=== PATIENT | female | born 1990 | race Caucasian/White ===

== ENCOUNTER → 2016-12-31 | Outpatient (REF) | payer OTHER, MEDICAID ==
[~2016-12-31] MED LIST: ACET50TA PO; IBUP-1114 PO; PRENTAB40 PO
== END ==
LOC: M LAB REF 11:24
PROVIDERS: ATTEND Advanced Practice Midwife
DX: Z12.4 Encounter for screening for malignant neoplasm of cervix (principal); R87.610 Atypical squamous cells of undetermined significance on cytologic smear of cervix (ASC-US)

== ENCOUNTER → 2018-01-27 | Outpatient (REF) | payer OTHER | LOC: M SMT 13:32 | DX: Z12.4 Encounter for screening for malignant neoplasm of cervix (principal) ==

== ENCOUNTER → 2018-07-29 | Outpatient (REF) | payer OTHER, SELFPAY ==
[~2018-07-29] MED LIST changes: -ACET50TA PO; +MAPA500T2 PO
[2018-07-29 17:12] LABS: FREE T4 0.46 NG/DL (0.76-1.46); THYROID STIMULATING HORMONE 55.1 uIU/ML (0.358-3.740)
== END ==
LOC: M SFHCLERA 11:18
PROVIDERS: ATTEND Nurse Practitioner Family
DX: Z83.49 Family history of other endocrine, nutritional and metabolic diseases (principal)

== ENCOUNTER → 2018-10-15 | Outpatient (REF) | payer OTHER ==
[2018-10-15 18:17] LABS: FREE T4 1.38 NG/DL (0.76-1.46); THYROID STIMULATING HORMONE 0.153 uIU/ML (0.358-3.740)
== END ==
LOC: M SFHCLERA 10:51
PROVIDERS: ATTEND Nurse Practitioner Family
DX: E03.9 Hypothyroidism, unspecified (principal)

== ENCOUNTER → 2019-01-19 | Outpatient (REF) | payer OTHER ==
[~2019-01-19] MED LIST changes: +AIRB1TAB PO; +AMOX875T2; +AUGM875T28 PO; +HYDR1CAP25; +HYDR1CAP25 PO; +IBUP-1720 PO; +LEVO88TA3; +MEDR150I10 IM; +SYNT88TA2 PO; +VENL37.598; +VENL37.598 PO; +VENTAER INH; +VICKOIN5 TOP
[2019-01-19 15:09] LABS: FREE T4 1.02 NG/DL (0.76-1.46); THYROID STIMULATING HORMONE 1.17 uIU/ML (0.358-3.740)
== END ==
LOC: M SFHCLERA 12:25
PROVIDERS: ATTEND Nurse Practitioner Family
DX: E03.9 Hypothyroidism, unspecified (principal)

== ENCOUNTER → 2019-01-23 | Outpatient (REF) | payer OTHER ==
[~2019-01-23] MED LIST changes: -AIRB1TAB PO; -AMOX875T2; -AUGM875T28 PO; -HYDR1CAP25; -HYDR1CAP25 PO; -IBUP-1720 PO; -LEVO88TA3; -MEDR150I10 IM; -SYNT88TA2 PO; -VENL37.598; -VENL37.598 PO; -VENTAER INH; -VICKOIN5 TOP
== END ==
LOC: M SFHCLERA 12:13
PROVIDERS: ATTEND Nurse Practitioner Family
DX: J02.9 Acute pharyngitis, unspecified (principal)

== ENCOUNTER 2019-02-03 18:39 | Inpatient (IN) | payer OTHER ==
[~2019-02-03] VITALS: Ht 154.9 cm; Wt 79.4 kg
[2019-02-03] MEDS ORDERED: AMOX875T2 (18:45)
[2019-02-03] MEDS ORDERED: HYDR1CAP25 (18:46)
[2019-02-03] MEDS ORDERED: LEVO88TA3 (18:46)
[2019-02-03] MEDS ORDERED: VENL37.598 (18:46)
[2019-02-03] MEDS ORDERED: ACETAMINOPHEN TAB 650MG DOSE (2X325MG) PO ONE ×2 (19:00→21:30)
[2019-02-03 19:36] LABS: BASO # 0.1 10^3/uL (0.0-0.2); BASO % 0.4 % (0.0-1.0); EOS # 0.3 10^3/uL (0.0-0.5); EOS % 1.9 % (0.0-3.0); HEMATOCRIT 40.6 % (36.0-47.0); HEMOGLOBIN 13.8 g/dl (12.0-15.5); LYMPH # 2.8 10^3/uL (1.5-5.0); LYMPH % 18.6 % (24.0-44.0); MEAN CORPUSCULAR HEMOGLOBIN 29.5 pg (27.0-33.0); MEAN CORPUSCULAR VOLUME 86.8 fl (80.0-96.0); MONO # 0.6 10^3/uL (0.0-0.8); MONO % 4.1 % (0.0-5.0); NEUTROPHILS % 74.1 % (36.0-66.0); PLATELET COUNT, AUTOMATED 384 10^3/uL (150-450); RED BLOOD COUNT 4.68 10^6/uL (4.00-5.40); WHITE BLOOD COUNT 14.9 10^3/uL (4.0-10.0)
[2019-02-03 20:11] LABS: ALBUMIN 3.3 GM/DL (3.2-5.2); ALT/SGPT 25 U/L (12-78); BILIRUBIN,TOTAL 0.7 MG/DL (0.2-1.0); BLOOD UREA NITROGEN 14 MG/DL (7-18); CALCIUM LEVEL 9.1 MG/DL (8.5-10.1); CARBON DIOXIDE LEVEL 26 MEQ/L (21-32); CHLORIDE LEVEL 103 MEQ/L (98-107); CREATININE FOR GFR 0.76 MG/DL (0.55-1.30); GLOMERULAR FILTRATION RATE > 60.0 (>60); GLUCOSE, FASTING 115 MG/DL (70-100); SODIUM LEVEL 138 MEQ/L (136-145); TOTAL PROTEIN 7.2 GM/DL (6.4-8.2)
[2019-02-03] MEDS ORDERED: BENZONATATE 100 MG CAP PO ONE (21:15)
[2019-02-03] MEDS ORDERED: DILUENT IV ONE (21:15)
[2019-02-03] MEDS ORDERED: NS IV ONE (21:15)
[2019-02-03 21:28] LABS: INFLUENZA A AMPLIFICATION NEGATIVE (NEGATIVE); INFLUENZA B AMPLIFICATION NEGATIVE (NEGATIVE)
[2019-02-03] MEDS ORDERED: ISOVUE-370 76% 100ML VIAL (Q9967) As Ordered ONE (21:34)
--- NOTE | 2019-02-03 22:48 | REPVR ---
PROCEDURE INFORMATION: Exam: CT Angiography Chest With Contrast Exam date and time: 02/03/2019 9:15 PM Clinical history: 28 years old, female; Chest pain; Type not specified; Additional info: Pleuritic cp, hemoptysis, elevated lactic TECHNIQUE: Imaging protocol: Computed tomographic angiography of the chest with intravenous contrast. 3D rendering: MIP reconstructed images were created and reviewed. Radiation optimization: All CT scans at this facility use at least one of these dose optimization techniques: automated exposure control; mA and/or kV adjustment per patient size (includes targeted exams where dose is matched to clinical indication); or iterative reconstruction. Contrast material: ISO; Contrast volume: 75 ml; Contrast route: HAND; COMPARISON: CR Chest, 2 view PA, Lat 08/03/2012 11:59 PM FINDINGS: Pulmonary arteries: There is decreased enhancement of peripheral pulmonary arterial branches within the right middle lobe and lingula, which can be a limitation of the study although pulmonary embolism is difficult to exclude. The main pulmonary trunk, right/left main pulmonary arteries, and the proximal lobar branches demonstrate no definite intraluminal filling defect to suggest pulmonary embolism. Aorta: Artifact limits evaluation of the ascending aorta and aortic arch. No aneurysmal dilatation or dissection of the descending thoracic aorta. Lungs: Diffuse reticulonodular opacities are identified within the lungs bilaterally. This is likely infectious or inflammatory in etiology. Scattered nodules are identified within the left lower lobe of the lung. On series 401, image 76, there is a 1.4 cm nodule. Malignant nodules cannot be excluded. A few small calcified nodules are identified within the left lower lobe of the lung. Pleural space: No pneumothorax. No pleural effusion. Heart: No cardiomegaly. No pericardial effusion. Lymph nodes: Nonspecific bilateral axillary lymph nodes are identified with prominent fatty carl. Several mildly enlarged mediastinal lymph nodes are identified. In the left periaortic region, there is a 1.2 x 0.6 cm lymph node. A mildly enlarged right hilar lymph node is visualized measuring 1.3 x 1.0 cm. Small left hilar lymph nodes are identified. Bones/joints: Mild increased kyphosis of the thoracic spine. Mild spondylosis visualized within the thoracic spine. Soft tissues: Unremarkable. IMPRESSION: 1. There is decreased enhancement of peripheral pulmonary arterial branches within the right middle lobe and lingula, which can be a limitation of the study although pulmonary embolism is difficult to exclude. 2. Diffuse reticulonodular opacities are identified within the lungs bilaterally. This is likely infectious or inflammatory in etiology. A follow-up chest CT is recommended. 3. Scattered nodules are identified within the left lower lobe of the lung. Malignant nodules cannot be excluded. If patient does not have known cancer, follow up should be based on clinical information because of the low risk of cancer in this age group. (Patrick et al., Fleischner Society, 2017) 4. Several mildly enlarged mediastinal lymph nodes are identified.. A mildly enlarged right hilar lymph node is visualized measuring 1.3 x 1.0 cm. Small left hilar lymph nodes are identified. 5. Additional findings described above. Electronically signed by: Stalin Parra On 02/03/2019 22:47:34 PM
[2019-02-03] MEDS ORDERED: ALBUTEROL SULFATE 2.5 MG/0.5 ML INH NEB SOLN NEB ONE (23:15)
[2019-02-04] MEDS ORDERED: LevoFLOXacin IV 750 MG in APPROPRIATE DILUENT 1 EA IV ONE (00:15)
[2019-02-04] MEDS ORDERED: AUGM875T28 PO (01:00)
[2019-02-04] MEDS ORDERED: IBUP-1720 PO (01:00)
[2019-02-04] MEDS ORDERED: VENTAER INH (01:00)
[2019-02-04] MEDS ORDERED: AIRB1TAB PO (01:00)
[2019-02-04] MEDS ORDERED: MEDR150I10 IM (01:00)
[2019-02-04] MEDS ORDERED: VICKOIN5 TOP (01:00)
[2019-02-04] MEDS ORDERED: SYNT88TA2 PO (01:00)
[2019-02-04] MEDS ORDERED: VENL37.598 PO (01:00)
[2019-02-04] MEDS ORDERED: HYDR1CAP25 PO (01:00)
--- NOTE | 2019-02-04 02:48 | HPEPDOC ---
[facility] Medical History & Physical Date of Admission Feb 04, 2019 Date of Service: Feb 04, 2019 Primary Care Physician: JOSEFA TOWNSEND Attending Physician: SOLEDAD KEN MD History and Physical CHIEF COMPLAINT: Two-week history of sore throat, cough, fevers, chills and myalgias HISTORY OF PRESENT ILLNESS: Patient is a 28-year-old female, past medical history significant for Hashimotos and depression, who presents to the emergency department complaining of a two-week history of sore throat, chills, congestion, myalgias and productive cough with green sputum. Patient was seen by her primary care provider, Marcos DHALIWAL, on 01/23/19. Rapid strep was performed and negative. Patients symptoms failed to improve and on 01/26/19 patient presented to urgent care. She was diagnosed with bronchitis and started on a course of oral Augmentin. Patient states that she concluded her antibiotics last week with only mild overall improvement in her symptoms. She states that on Saturday02/01/19, her fever, now measuring 101F, returned. She reports self-treatment with [id number]-nus-xodjsli Aleve. Her cough continued to persist with green-colored sputum. Patient presented to the emergency department this evening after her symptoms failed to improve. In the emergency department, patient was found to have a temperature of 101.5F on arrival, pulse of 118 bpm, respiratory rate of 20, blood pressure 130/86 mmHg and an oxygen saturation 97% on room air. Patient was treated with albuterol nebulizers, Tylenol, Tessalon Perles and normal saline. Patients fever was responsive to NSAID therapy. Laboratory workup was significant for a leukocytosis of 14.9 with neutrophilia. Chemistries demonstrated a lactic acid of 2.8 and a TSH of 5.6. B-hCG negative. Flu swab was negative for both influenza A and B. CTA was performed, out of concern for PE, and demonstrated decreased enhancement of right middle lobe and lingula, unable to rule out PE. Reticulonodular opacities bilaterally, suspect infectious or inflammatory etiology. Scattered nodules also identified in the left lower lobe of lung in the setting of bilateral mediastinal lymphadenopathy. A single dose of IV levofloxacin was administered. Hospitalist team was contacted for admission for IV antibiotic therapy and continue workup and management. PAST MEDICAL HISTORY: ADHD Depression Hashimotos thyroiditis. PAST SURGICAL HISTORY: Patient denies any previous surgeries SOCIAL HISTORY: Marital Status: Engaged Resides: At home with chloe and 3-year-old son Occupation: Patient works at [employer] Tobacco: Patient denies any history of nicotine use Alcohol: Patient reports very rare alcohol use and no recent intoxication. Illicit drug use: Patient admits to utilizing edible marijuana once in the last month. She denies any other illicit or IV drug use. FAMILY HISTORY: Father: Alive, ADHD Mother: Alive, Graves' disease Siblings: Alive, 4 sisters, healthy Children: One 3-year-old son, healthy ALLERGIES: Patient denies any allergies REVIEW OF SYSTEMS: CONSTITUTIONAL: Patient reports intermittent fevers over the last 2 weeks. Worse in the last 3 days with a high of 101. Amenable to [id number] Aleve. Patient reports coinciding chills and night sweats. She reports increased weight gain over the last couple weeks despite decreased appetite. Patient also subscribes to increasing fatigue. HEENT: Reports intermittent headaches, generalized. She denies any changes in vision. She reports intermittent ear pain in both sides though never at the same time. Reporting nasal congestion and maxillary sinus pressure. She denies any difficulty swallowing. CARDIOVASCULAR: Patient reports generalized chest and rib pain, worse when coughing. She denies any palpitations or inappropriate tachycardia RESPIRATORY: Reports 2 week history of productive cough with yellow sputum, some light pink flecks. Patient reports an audible wheeze when lying flat. She denies being short of breath. No orthopnea. No pleuritic chest pain. GASTROINTESTINAL: Patient denies any reflux, abdominal pain, nausea or vomiting. Patient does subscribes to a 3 week history of diarrhea. She states that it is resolving compared to last week. GENITOURINARY: Patient denies any difficulty urinating SKIN: Patient denies any new lesions, bruising or rashes MUSCULOSKELETAL: Patient does report generalized myalgias NEUROLOGICAL: Patient denies any numbness, tingling, paresthesias. She denies any focal neurologic deficits, changes in sensorium, aphasia, memory difficulties PSYCHIATRIC: Patient reports a history of depression, currently managed by medication HOME MEDICATIONS: Depo-Provera Levothyroxine 88 g Hydroxyzine 25 mg Effexor XR 37.5 mg PHYSICAL EXAMINATION: VITAL SIGNS: Temperature 98.2 F, pulse 69, respiratory rate 18, blood pressure 124/71 mmHg, pulse oximetry 97% on room air. GENERAL APPEARANCE: [facility] Patient was found to be sitting upright in bed, no acute distress. Patient was alert and oriented to person place and time. Patient was able to answer questions appropriately and actively participate in her care. HEENT: Normocephalic, atraumatic, nontender. External auditory canals patent, without signs of infection. TM membranes were pearly euceda without effusion bilaterally. Patients nasal turbinates are nonedematous. Posterior pharynx mildly erythematous. No tonsilar swelling or exudates. Oral mucosa pink and moist. Good oral hygiene noted' NECK: Minimal thyromegaly palpated. No cervical lymphadenopathy. CARDIOVASCULAR: Regular rate and rhythm, no murmurs gallops or rubs. Normal S1 and S2 LUNGS: Adequate air movement throughout. Faint/scattered wheezes without rhonchi. Slight dullness to percussion noted on the posterior right lower base. No E to A egophony. ABDOMEN: soft, nontender, nondistended, no organomegaly. EXTREMITIES: : Patient able to move all extremities independently and equally bilaterally. No lower extremity edema. No calf tenderness bilaterally. NEUROLOGICAL: Strength and sensation intact throughout PSYCHIATRIC: Mood and affect are appropriate. LABORATORY DATA: See below. IMAGING: CTA (02/04/19): Decreased enhancement of peripheral pulmonary arterial branches within the right middle lobe and lingula. emboli is difficult to exclude. Diffuse reticulonodular opacities bilaterally. Likely infectious or inflammatory in etiology. Follow-up CT recommended. Scattered nodules identified within the left lower lobe. Malignant nodules cannot be excluded. Several enlarged media's time for lymph nodes identified bilaterally. MICROBIOLOGY: Blood culture, venous (02/03/19): Culture pending ASSESSMENT/PLAN: Patient is a 28 year-old female, past medical history significant for Eddy's, depression and obesity, with a 2-week history of productive cough and fevers. Admitted for IV antibiotics and fluid resuscitation for sepsis suspected 2/2 to CAP Sepsis 2/2 suspected community acquired pneumonia -Patient does meet Sepsis Criteria (SIRS + Source of infection). SIRS: presenting temperature greater than 100.4 F, HR greater than 90 bpm and a WBC count greater than 12. Source of infection: suspected CAP. -CURB 65 score of 0 indicating a decreased risk of mortality. Admission required given patient's refractory symptoms and persistent fever. -National Early Warning Sign Score (NEWS2) score of 3, indicating need for vital re-assessment every 4-6 hours. -Drug Resistance in Pneumonia (DRIP) score of 2; indicating lower risk of drug- resistant PNA. -IV Zosyn for antibiotic therapy. -NS fluid resuscitation with 30 cc/kg bolus. -Tessalon Perles as needed for cough. Tylenol for pain and fever. -Daily CBC to trend leukocytosis, BMP to monitor renal function. -Blood cultures ordered. Sputum cultures if available. -Repeat Chest CT in am as artifact in first study makes it difficult to definitively rule-out PE. -Consider pneumococcal and legionella urinary antigen. HIV to rule out immunosuppression. QuantiFERON to rule out TB though, unlikely given lack of upper lobe involvement. Pro-calcitonin to aid in antibiotic de-escalation. Flu negative. Eddy's -Continue home levothyroxine 88 micrograms daily -TSH elevation likely 2/2 to acute infection Obesity -BMI >30, A1c ordered to screen for DM -Encourage 40 minutes of aerobic exercise 4-5 days per week and active lifestyle. DVT PROPHYLAXIS: Lovenox CODE STATUS: Full Code Vital Signs Vital Signs Date Time Temp Pulse Resp B/P (MAP) Pulse Ox O2 Delivery O2 Flow Rate FiO2 02/04/19 00:57 98.2 69 18 124/71 (88) 97 02/03/19 18:39 Room Air Laboratory Data Labs 24H Laboratory Tests 2 02/03/19 19:21: Urine Color YELLOW, Urine Appearance CLOUDYH, Urine pH 7.0, Urine Specific Grav ity 1.019, Urine Protein NEGATIVE, Urine Glucose (UA) NEGATIVE, Urine Ketones NEGATIVE, Urine Blood NEGATIVE, Urine Nitrite NEGATIVE, Urine Bilirubin NEGATIVE, Urine Urobilinogen 0.2, Urine Leukocyte Esterase NEGATIVE, Urine WBC (Auto) 2, Urine RBC (Auto) 3, Urine Hyaline Casts (Auto) 0, Urine Bacteria (Auto) NEGATIVE, Urine Squamous Epithelial Cells 2, Urine Amorphous Sediment SMALLH, Urine Mucus (Auto) SMALL, Urine Sperm (Auto) 02/03/19 19:22: Immature Granulocyte % (Auto) 0.9, White Blood Count 14.9H, Red Blood Count 4.68, Hemoglobin 13.8, Hematocrit 40.6, Mean Corpuscular Volume 86.8, Mean Corpuscular Hemoglobin 29.5, Mean Corpuscular Hemoglobin Concent 34.0, Red Cell Distribution Width 12.1, Platelet Count 384, Neutrophils (%) (Auto) 74.1H, Lymphocytes (%) (Auto) 18.6L, Monocytes (%) (Auto) 4.1, Eosinophils (%) (Auto) 1.9, Basophils (%) (Auto) 0.4, Neutrophils # (Auto) 11.0H, Lymphocytes # (Auto) 2.8, Monocytes # (Auto) 0.6, Eosinophils # (Auto) 0.3, Basophils # (Auto) 0.1, Nucleated Red Blood Cells % (auto) 0.0, Anion Gap 9, Glomerular Filtration Rate > 60.0, Lactic Acid Level 2.8*H, Blood Urea Nitrogen 14, Creatinine 0.76, Sodium Level 138, Potassium Level 4.0, Chloride Level 103, Carbon Dioxide Level 26, Calcium Level 9.1, Aspartate Amino Transf (AST/SGOT) 15, Alanine Aminotransferase (ALT/SGPT) 25, Alkaline Phosphatase 76, Total Bilirubin 0.7, Total Protein 7.2, Albumin 3.3, Albumin/Globulin Ratio 0.85L, Thyroid Stimulating Hormone (TSH) 5.610H 02/03/19 19:33: POC Glucose (Misc Panel) 119H, POC Sodium (Misc Panel) 136, POC Potassium (Misc Panel) 4.6, POC Chloride (Misc Panel) 106, POC Total CO2 (Misc Panel) 23.0, POC Blood Urea Nitrogen (Misc Panel 16, POC Ionized Calcium (Misc Panel) 3.8L, POC Creatinine (Misc Panel) 0.6, POC Hematocrit (Misc Panel) 40.0 02/03/19 19:35: POC Beta HCG, Quantitative < 5.0 02/03/19 20:10: POC Beta HCG, Quantitative < 5.0 02/03/19 20:35: Influenza Type A (RT-PCR) NEGATIVE, Influenza Type B (RT-PCR) NEGATIVE 02/04/19 00:09: Lactic Acid Followup at 4 Hours 0.9 CBC/BMP Laboratory Tests 02/03/19 19:22 Red Blood Count 4.68, Mean Corpuscular Volume 86.8, Mean Corpuscular Hemoglobin 29.5, Mean Corpuscular Hemoglobin Concent 34.0, Red Cell Distribution Width 12.1, Neutrophils (%) (Auto) 74.1 H, Lymphocytes (%) (Auto) 18.6 L, Monocytes (%) (Auto) 4.1, Eosinophils (%) (Auto) 1.9, Basophils (%) (Auto) 0.4, Neutrophils # (Auto) 11.0 H, Lymphocytes # (Auto) 2.8, Monocytes # (Auto) 0.6, Eosinophils # (Auto) 0.3, Basophils # (Auto) 0.1, Calcium Level 9.1, Aspartate Amino Transf (AST/SGOT) 15, Alanine Aminotransferase (ALT/SGPT) 25, Alkaline Phosphatase 76, Total Bilirubin 0.7, Total Protein 7.2, Albumin 3.3 Microbiology Microbiology 02/03/19 Blood Culture, Received Pending Home Medications Scheduled Amoxicillin/Potassium Clav (Augmentin 875-125 Tablet) 1 Each Tablet, 875 MG PO BID Eucalyptus Oil/Menthol/Camphor (Vicks Vaporub Ointment) 50 Gm Oint...g., 1 DOSE TOP QHS Levothyroxine Sodium (Synthroid) 88 Mcg Tablet, 88 MCG PO DAILY Medroxyprogesterone Acetate (Medroxyprogesterone Acetate) 150 Mg/1 Ml Vial, 150 MG IM Q3M LAST DOSE IN LATE DECEMBER Mv-Min/Vit C/Glut/Lysine/Hb124 (Airborne Effervescent Tablet) 1 Each Tablet.eff, 1 TAB PO BID Venlafaxine HCl (Venlafaxine HCl ER) 37.5 Mg Cap.er.24h, 37.5 MG PO QPM TAKES AT DINNERTIME Scheduled PRN Albuterol Sulfate (Ventolin Hfa) 18 Gm Hfa.aer.ad, 2 PUFF INH Q4H PRN for SHORTNESS OF BREATH Hydroxyzine Pamoate (Hydroxyzine Pamoate) 25 Mg Capsule, 25 MG PO BID PRN for ANXIETY Ibuprofen (Ibuprofen) 200 Mg Tablet, 400 MG PO Q6H PRN for PAIN Allergies Coded Allergies: No Known Allergies (Unverified , 02/03/19) A-FIB/CHADSVASC A-FIB History Current/History of A-Fib/PAF?: No GME ATTESTATION GME ATTESTATION My faculty preceptor for this patient encounter was physically present during the encounter and was fully available. All aspects of the patient interview, examination, medical decision making process, and medical care plan development were reviewed and approved by the faculty preceptor. The faculty preceptor is aware and concurs with the plan as stated in the body of this note and will attest to such by his/her cosignature. ATTENDING NOTE I personally examined the patient at 2:40 AM, and discussed the case with Dr. Wilson. This is a 28-year-old female who presents with complaints of cough productive of below and green sputum since the of this month. She came to the hospital today because her symptoms have persisted despite taking antibiotics. PHYSICAL EXAM Temperature is 11.5, heart rate is 118, respiratory rate is 20. She does not appear toxic. There is expiratory wheezing, more prominent at the right The rest of physical exam is otherwise unremarkable. The blood work was remarkable for WBC count of 14.9 CT of the chest showed diffuse reticular nodular obesities possibly infectious versus inflammatory. Recommendations were made for repeat CT was also scattered nodules within the left lower lobe malignancy could not be excluded. There are also several mildly enlarged, metastatic to lymph nodes and the small enlarged right hilar lymph node. Per discussion with the ED provider PE cannot be ruled out because of artifact. ASSESSMENT & PLAN: This is a 28-year-old female with a past medical history of Eddy's will be admitted for management of possible pneumonia. 1.Sepsis possibly secondary to pneumonia Plan: Admit to PCU/follow-up repeat CT scan in the morning/sepsis protocol with IV fluids and antibiotics/Tessalon pearls and cough syrup. 2. Obesity BMI 33.9 Plan: Follow-up A1c/can f/u w PCP for civil engineer's aide consult / recommend cardiovascular exercise for 40 min 4-5 days a week Rest per Dr. Wilson's note Billing [id number] - [facility] [place] WILSON DO Feb 04, 2019 02:48 SOLEDAD KEN MD Feb 04, 2019 03:33
[2019-02-04] MEDS ORDERED: SODIUM CHLORIDE 0.9% 1000ML IV STA (03:40)
[2019-02-04 05:06] LABS: HEMATOCRIT 38.3 % (36.0-47.0); MEAN CORPUSCULAR HEMOGLOBIN 30.1 pg (27.0-33.0); MEAN CORPUSCULAR HGB CONC 33.9 g/dl (32.0-36.5); MEAN CORPUSCULAR VOLUME 88.7 fl (80.0-96.0); PLATELET COUNT, AUTOMATED 335 10^3/uL (150-450); RED BLOOD COUNT 4.32 10^6/uL (4.00-5.40); WHITE BLOOD COUNT 13.1 10^3/uL (4.0-10.0)
[2019-02-04 05:18] LABS: INR 1.18; PROTHROMBIN TIME 14.7 SECONDS (11.8-14.0)
[2019-02-04 05:28] LABS: BLOOD UREA NITROGEN 8 MG/DL (7-18); CALCIUM LEVEL 8.1 MG/DL (8.5-10.1); CARBON DIOXIDE LEVEL 23 MEQ/L (21-32); CHLORIDE LEVEL 114 MEQ/L (98-107); CREATININE FOR GFR 0.57 MG/DL (0.55-1.30); GLOMERULAR FILTRATION RATE > 60.0 (>60); GLUCOSE, FASTING 108 MG/DL (70-100); POTASSIUM SERUM 4.1 MEQ/L (3.5-5.1); SODIUM LEVEL 144 MEQ/L (136-145)
[2019-02-04 05:31] LABS: HEMOGLOBIN A1c 5.1 %
[2019-02-04 05:32] LABS: PARTIAL THROMBOPLASTIN TIME 36.3 SECONDS (25.0-38.4)
[2019-02-04] MEDS ORDERED: LEVOTHYROXINE 88MCG TABLET (0.088 MG) As Ordered ONE (06:43)
[2019-02-04] MEDS: LEVOTHYROXINE 88MCG TABLET (0.088 MG) PO SCH (06:47)
[2019-02-04] MEDS ORDERED: ZOSYN 4.5 GM As Ordered ONE (06:49)
[2019-02-04] MEDS: PIPERACILLIN/TAZOBACTAM SOD 4.5 GM in D5W MINI-BAG PLUS 50 ML IV SCH ×3 (06:50→18:36)
[2019-02-04 08:00] VITALS: BP_SYST 135; BP_SYST 144; BP_SYST 150; BP_DIAS 106; BP_DIAS 75; BP_DIAS 98
[2019-02-04] MEDS ORDERED: ENOXAPARIN 40 MG/0.4 ML SYRINGE (J1650) As Ordered ONE (08:21)
[2019-02-04] MEDS: ENOXAPARIN 40 MG/0.4 ML SYRINGE (J1650) SC SCH (08:22)
[2019-02-04] MEDS: ACETAMINOPHEN TAB 650MG DOSE (2X325MG) PO PRN ×2 (10:35→14:41)
[2019-02-04 10:39] VITALS: BP 113/76
[2019-02-04 12:00] VITALS: BP 130/59
[2019-02-04] MEDS: BENZONATATE 100 MG CAP PO PRN ×2 (14:26→18:35)
[2019-02-04 14:36] VITALS: BP 112/68
[2019-02-04] MEDS: VENLAFAXINE **XR** 37.5 MG CAPSULE PO SCH (18:35)
[2019-02-04] MEDS ORDERED: IPRATROPIUM 0.5MG/ALBUTEROL 2.5MG INH SOL UD 3ML (DUONEB)(J7620) NEB SCH (19:00)
--- NOTE | 2019-02-04 20:40 | ECGEPIP ---
[facility] - ED Test Date: 2019-02-03 Pat Name: BAILEY FELIPE Department: Room: [place] [id number] Gender: Female [employer] Operations Engineer: DWAIN : 1990 Requested By: MARIANNE Whitaker PA-C Order Number: [id number] Reading MD: Neena Manzanares Measurements Intervals [place] Rate: 92 P: 45 VA: 138 QRS: 52 QRSD: 86 T: 32 QT: 347 QTc: 429 Interpretive Statements SINUS RHYTHM WITH SINUS ARRHYTHMIA NONSPECIFIC T-WAVE ABNORMALITY NO PRIOR Electronically Signed on 02-04-2019 20:40:09 EDT by Neena Manzanares
[2019-02-04] MEDS: IPRATROPIUM 0.5MG/ALBUTEROL 2.5MG INH SOL UD 3ML (DUONEB)(J7620) NEB PRN (20:42)
[2019-02-04 22:00] VITALS: BP 118/76
[2019-02-05] MEDS: PIPERACILLIN/TAZOBACTAM SOD 4.5 GM in D5W MINI-BAG PLUS 50 ML IV SCH ×4 (00:38→17:20)
[2019-02-05] MEDS: LEVOTHYROXINE 88MCG TABLET (0.088 MG) PO SCH (06:08)
[2019-02-05] MEDS: IPRATROPIUM 0.5MG/ALBUTEROL 2.5MG INH SOL UD 3ML (DUONEB)(J7620) NEB PRN ×3 (06:34→13:20)
[2019-02-05 06:41] VITALS: BP 119/53
[2019-02-05 07:15] LABS: HEMOGLOBIN 13.1 g/dl (12.0-15.5); MEAN CORPUSCULAR HEMOGLOBIN 29.3 pg (27.0-33.0); MEAN CORPUSCULAR HGB CONC 33.6 g/dl (32.0-36.5); MEAN CORPUSCULAR VOLUME 87.2 fl (80.0-96.0); PLATELET COUNT, AUTOMATED 334 10^3/uL (150-450); RED BLOOD COUNT 4.47 10^6/uL (4.00-5.40); WHITE BLOOD COUNT 7.1 10^3/uL (4.0-10.0)
[2019-02-05 07:40] LABS: BLOOD UREA NITROGEN 11 MG/DL (7-18); CALCIUM LEVEL 8.8 MG/DL (8.5-10.1); CARBON DIOXIDE LEVEL 25 MEQ/L (21-32); CHLORIDE LEVEL 107 MEQ/L (98-107); CREATININE FOR GFR 0.81 MG/DL (0.55-1.30); GLOMERULAR FILTRATION RATE > 60.0 (>60); GLUCOSE, FASTING 114 MG/DL (70-100); MAGNESIUM LEVEL 2.2 MG/DL (1.8-2.4); POTASSIUM SERUM 3.6 MEQ/L (3.5-5.1); SODIUM LEVEL 141 MEQ/L (136-145)
--- NOTE | 2019-02-05 07:56 | IPNPDOC ---
Text Note Date of Service The patient was seen on 02/05/19. NOTE Subjective: -Better this morning, on room air, breathing comfortably Objective: VITALS: as below GENERAL APPEARANCE: Well appearing, no acute distress HEENT: NCAT, nasal turbinates without edema, clear posterior pharynx mildly erythematous, no exudates, MMM. NECK: Mild thyromegaly, no tenderness, no adenopathy CARDIOVASCULAR: RRR, no mrg LUNGS: Scattered wheezes without rhonchi without sarahy crackles, slightly diminished posterior right lower base ABDOMEN: soft, nontender, nondistended, no organomegaly. EXTREMITIES:No lower extremity edema or calf tenderness bilaterally, WWP NEUROLOGICAL: Strength and sensation intact throughout, cranial nerves 2-12 intact, normal gait PSYCHIATRIC: Mood and affect are appropriate. Labs: Reviewed Imaging: no new interval imaging CAP w/ sepsis criteria: -Patient met Sepsis Criteria having presented with temperature greater than 100.4 F, HR greater than 90 bpm and a WBC count greater than 12 with a source of infection being CAP. -CURB 65 score of 0 indicating a decreased risk of mortality. Admission required given patient's refractory symptoms and persistent fever -Sputum with GPCs in chains, likely strep, will await final culture data for final course and de-escalate from Zosyn likely to ceftin to complete 7d course. -s/p NS fluid resuscitation with 30 cc/kg bolus. -Tessalon Perles as needed for cough. Tylenol for pain and fever. -Daily CBC to trend leukocytosis, BMP to monitor renal function. -f/u Blood cultures and Sputum cultures -Will consider Chest CT repeat as first study artifact made it difficult to definitively rule-out PE if symptoms persist without improvement -f/u pneumococcal and legionella urinary antigen. -Flu negative, +Rhinovirus, on droplet precatiouns Eddy's -Continue home levothyroxine 88 micrograms daily -TSH elevation likely 2/2 to acute infection Obesity -BMI >30, A1c ordered to screen for DM -Encourage 40 minutes of aerobic exercise 4-5 days per week and active lifestyle. DVT PROPHYLAXIS: Lovenox CODE STATUS: Full Code VS,Fishbone, I+O VS, Fishbone, I+O Laboratory Tests 02/05/19 06:53 Red Blood Count 4.47, Mean Corpuscular Volume 87.2, Mean Corpuscular Hemoglobin 29.3, Mean Corpuscular Hemoglobin Concent 33.6, Red Cell Distribution Width 12.4, Calcium Level 8.8 Vital Signs Date Time Temp Pulse Resp B/P (MAP) Pulse Ox O2 Delivery O2 Flow Rate FiO2 02/05/19 06:41 98.1 81 17 119/53 (75) 94 02/03/19 18:39 Room Air I&O- Last 24 Hours up to 6 AM 02/05/19 06:00 Intake Total 910 ml Output Total 1100 ml Balance -190 ml JOSE GUPTA MD Feb 05, 2019 07:56
[2019-02-05 08:55] LABS: FREE T4 1.28 NG/DL (0.76-1.46)
[2019-02-05] MEDS: ENOXAPARIN 40 MG/0.4 ML SYRINGE (J1650) SC SCH (09:28)
[2019-02-05] MEDS: ACETAMINOPHEN TAB 650MG DOSE (2X325MG) PO PRN ×2 (09:30→13:10)
[2019-02-05 10:00] VITALS: BP 114/66
[2019-02-05 14:00] VITALS: BP 114/67
[2019-02-05] MEDS: VENLAFAXINE **XR** 37.5 MG CAPSULE PO SCH (17:20)
[2019-02-05 18:00] VITALS: BP 114/69
[2019-02-05 20:00] VITALS: BP 122/74
[2019-02-05] MEDS: BENZONATATE 100 MG CAP PO PRN (20:39)
[2019-02-06] VITALS: BP 118/58
[2019-02-06] MEDS: PIPERACILLIN/TAZOBACTAM SOD 4.5 GM in D5W MINI-BAG PLUS 50 ML IV SCH ×2 (00:37→05:53)
[2019-02-06 04:00] VITALS: BP 112/56
[2019-02-06] MEDS: LEVOTHYROXINE 88MCG TABLET (0.088 MG) PO SCH (05:53)
[2019-02-06] MEDS ORDERED: MOXIFLOXACIN 400 MG TAB PO SCH (06:00)
[2019-02-06 06:21] LABS: HEMOGLOBIN 13.5 g/dl (12.0-15.5); MEAN CORPUSCULAR HEMOGLOBIN 30.3 pg (27.0-33.0); MEAN CORPUSCULAR HGB CONC 32.9 g/dl (32.0-36.5); MEAN CORPUSCULAR VOLUME 92.1 fl (80.0-96.0); PLATELET COUNT, AUTOMATED 309 10^3/uL (150-450); RED BLOOD COUNT 4.45 10^6/uL (4.00-5.40); WHITE BLOOD COUNT 7.6 10^3/uL (4.0-10.0)
[2019-02-06 06:35] LABS: BLOOD UREA NITROGEN 11 MG/DL (7-18); CALCIUM LEVEL 8.9 MG/DL (8.5-10.1); CARBON DIOXIDE LEVEL 22 MEQ/L (21-32); CHLORIDE LEVEL 112 MEQ/L (98-107); CREATININE FOR GFR 0.73 MG/DL (0.55-1.30); GLOMERULAR FILTRATION RATE > 60.0 (>60); GLUCOSE, FASTING 97 MG/DL (70-100); SODIUM LEVEL 141 MEQ/L (136-145)
[2019-02-06] MEDS ORDERED: BENZ-18 PO (07:50)
[2019-02-06] MEDS ORDERED: MOXI400T11 PO (07:50)
[2019-02-06] MEDS ORDERED: ACET1TAB55 PO (07:50)
[2019-02-06 08:00] VITALS: BP 130/63
[2019-02-06] MEDS: ENOXAPARIN 40 MG/0.4 ML SYRINGE (J1650) SC SCH (09:00)
[2019-02-06] MEDS: BENZONATATE 100 MG CAP PO PRN (09:03)
--- NOTE | 2019-02-06 10:39 | DS.PDOC ---
Discharge Summary General Date of Admission Feb 04, 2019 at 14:12 Date of Discharge 02/06/2019 Attending Physician: JOSE GUPTA MD Discharge Summary PROCEDURES PERFORMED DURING STAY: None ADMITTING DIAGNOSES: 1. Pneumonia DISCHARGE DIAGNOSES: 1. Community acquired pneumonia 2. Rhinovirus upper respiratory infection COMPLICATIONS/CHIEF COMPLAINT: Sepsis, Uri. 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 Patient was seen by her primary care provider, Marcos DHALIWAL, on 01/23/19 and had a rapid strep test performed that was negative. Patients symptoms failed to improve and on 01/26/19 patient presented to urgent care. She was diagnosed with bronchitis and started on a course of oral Augmentin. Patient states that she concluded her antibiotics last week with only mild overall improvement in her symptoms. She states that on Saturday02/01/19, her fever, now measuring 101F, returned. Her cough continued to persist with green-colored sputum prompting her presentation to the ED after her symptoms failed to improve. In the emergency department, patient was found to have a temperature of 101.5F on arrival, pulse of 118 bpm, respiratory rate of 20, blood pressure 130/86 mmHg and an oxygen saturation 97% on room air. She was treated with albuterol nebulizers, Tylenol, Tessalon Perles and normal saline while laboratory workup was significant for a leukocytosis of 14.9 with neutrophilia, with a lactate of 2.8 and a TSH of 5.6. A CTA chest was performed, out of concern for PE, and demonstrated decreased enhancement of right middle lobe and lingula, unable to rule out PE. Reticulonodular opacities bilaterally, suspect infectious or inflammatory etiology. Scattered nodules also identified in the left lower lobe of lung in the setting of bilateral mediastinal lymphadenopathy. A single dose of IV levofloxacin was administered and she was admitted medicine. While inpatient, she remained stable on room air and was switched to zosyn while sputum and blood cultures were thus far negative, with sputum with mixed helen however with GPCs in chains noted. She remained afebrile and hemodynamically stable with an improving cough and was switched to moxifloxacin to complete a 5 day course for CAP. Of note, urine strep and legionella remain pending and she was found to be rhinovirus positive. She is now being discharged home to [place] m[place] a 7 day course of antibiotics with 2 more days of moxifloxacin with close PCP follow up. Also of note, I continued her synthroid per home meds regimen. TSH was elevated but free t4 was normal. I did not pursue more imaging to r/o PE because there was enough evidence of infection and her tachycardia, fever and shortness of breath resolved with antibiotics. DISCHARGE MEDICATIONS: Please see below. ALLERGIES: Please see below. PHYSICAL EXAMINATION ON DISCHARGE: VITAL SIGNS: Please see below. GENERAL APPEARANCE: Well appearing, no acute distress HEENT: NCAT, nasal turbinates without edema, clear posterior pharynx mildly erythematous, no exudates, MMM. NECK: Mild thyromegaly, no tenderness, no adenopathy CARDIOVASCULAR: RRR, no mrg LUNGS: Scattered rare wheezes without rhonchi and no crackles, posterior right lower base remains slightly diminished ABDOMEN: soft, nontender, nondistended, no organomegaly. EXTREMITIES:No lower extremity edema or calf tenderness bilaterally, WWP NEUROLOGICAL: Strength and sensation intact throughout, cranial nerves 2-12 intact, normal gait PSYCHIATRIC: Mood and affect are appropriate. LABORATORY DATA: Please see below. IMAGIN02/03/2019: CTA chest, PE protocol Pulmonary arteries: There is decreased enhancement of peripheral pulmonary art erial branches within the right middle lobe and lingula, which can be a limitation of the study although pulmonary embolism is difficult to exclude. The main pulmonary trunk, right/left main pulmonary arteries, and the proximal lobar branches demonstrate no definite intraluminal filling defect to suggest pulmonary embolism. Aorta: Artifact limits evaluation of the ascending aorta and aortic arch. No aneurysmal dilatation or dissection of the descending thoracic aorta. Lungs: Diffuse reticulonodular opacities are identified within the lungs bilaterally. This is likely infectious or inflammatory in etiology. Scattered nodules are identified within the left lower lobe of the lung. On series 401, image 76, there is a 1.4 cm nodule. Malignant nodules cannot be excluded. A few small calcified nodules are identified within the left lower lobe of the lung. Pleural space: No pneumothorax. No pleural effusion. Heart: No cardiomegaly. No pericardial effusion. Lymph nodes: Nonspecific bilateral axillary lymph nodes are identified with prominent fatty carl. Several mildly enlarged mediastinal lymph nodes are identified. In the left periaortic region, there is a 1.2 x 0.6 cm lymph node. A mildly enlarged right hilar lymph node is visualized measuring 1.3 x 1.0 cm. Small left hilar lymph nodes are identified. Bones/joints: Mild increased kyphosis of the thoracic spine. Mild spondylosis visualized within the thoracic spine. Soft tissues: Unremarkable. IMPRESSION: 1. There is decreased enhancement of peripheral pulmonary arterial branches within the right middle lobe and lingula, which can be a limitation of the study although pulmonary embolism is difficult to exclude. 2. Diffuse reticulonodular opacities are identified within the lungs bilaterally. This is likely infectious or inflammatory in etiology. A follow-up chest CT is recommended. 3. Scattered nodules are identified within the left lower lobe of the lung. Malignant nodules cannot be excluded. If patient does not have known cancer, follow up should be based on clinical information because of the low risk of ca ncer in this age group. (Patrick et al., Fleischner Society, 2017) 4. Several mildly enlarged mediastinal lymph nodes are identified.. A mildly enlarged right hilar lymph node is visualized measuring 1.3 x 1.0 cm. Small left hilar lymph nodes are identified. PROGNOSIS: Good ACTIVITY: As tolerated DIET: Regular DISCHARGE PLAN: Home with PCP follow up and 2 days of antibiotics to complete pn eumonia treatment DISPOSITION: Home DISCHARGE INSTRUCTIONS: 1. Please complete the last 2 days of antibiotics to complete pneumonia treatment and recommend PCP follow up within 7days of discharge. ITEMS TO FOLLOWUP ON ON OUTPATIENT: 1. Resolution of pulmonary infection and URI symptoms DISCHARGE CONDITION: Fair TIME SPENT ON DISCHARGE: Greater than 30 minutes. Vital Signs/I&Os Vital Signs Date Time Temp Pulse Resp B/P (MAP) Pulse Ox O2 Delivery O2 Flow Rate FiO2 02/06/19 00:00 98.5 68 18 118/58 (78) 96 02/03/19 18:39 Room Air I&O- Last 24 Hours up to 6 AM 02/06/19 06:00 Intake Total 810 ml Output Total 250 ml Balance 560 ml Laboratory Data Labs 24H Laboratory Tests 2 02/06/19 05:53: Nucleated Red Blood Cells % (auto) 0.0, Anion Gap 7L, Glomerular Filtration Rate > 60.0, Blood Urea Nitrogen 11, Creatinine 0.73, Sodium Level 141, Potassium Level 4.0, Chloride Level 112H, Carbon Dioxide Level 22, Calcium Level 8.9 CBC/BMP Laboratory Tests 02/06/19 05:53 Red Blood Count 4.45, Mean Corpuscular Volume 92.1, Mean Corpuscular Hemoglobin 30.3, Mean Corpuscular Hemoglobin Concent 32.9, Red Cell Distribution Width 12.5, Calcium Level 8.9 Microbiology Microbiology 02/04/19 Gram Stain - Final, Resulted 02/04/19 Sputum Culture, Resulted Pending 02/04/19 Respiratory Virus Panel (PCR) ([facility]) - Final, Complete Human Rhinovirus/Enterovirus 02/04/19 Blood Culture - Preliminary, Resulted No Growth after 48 hours. All Specime... 02/04/19 Blood Culture - Preliminary, Resulted No Growth after 48 hours. All Specime... 02/03/19 Blood Culture - Preliminary, Resulted No Growth after 48 hours. All Specime... Discharge Medications Scheduled Amoxicillin/Potassium Clav (Augmentin 875-125 Tablet) 1 Each Tablet, 875 MG PO BID, (Reported) Eucalyptus Oil/Menthol/Camphor (Vicks Vaporub Ointment) 50 Gm Oint...g., 1 DOSE TOP QHS, (Reported) Levothyroxine Sodium (Synthroid) 88 Mcg Tablet, 88 MCG PO DAILY, (Reported) Medroxyprogesterone Acetate (Medroxyprogesterone Acetate) 150 Mg/1 Ml Vial, 150 MG IM Q3M, (Reported) LAST DOSE IN LATE DECEMBER Moxifloxacin HCl (Moxifloxacin HCl) 400 Mg Tablet, 400 MG PO DAILY@06 Mv-Min/Vit C/Glut/Lysine/Hb124 (Airborne Effervescent Tablet) 1 Each Tablet.eff, 1 TAB PO BID, (Reported) Venlafaxine HCl (Venlafaxine HCl ER) 37.5 Mg Cap.er.24h, 37.5 MG PO QPM, (Reported) TAKES AT DINNERTIME Scheduled PRN Acetaminophen (Acetaminophen) 325 Mg Tablet, 650 MG PO Q6HP PRN for PAIN OR FEVER Albuterol Sulfate (Ventolin Hfa) 18 Gm Hfa.aer.ad, 2 PUFF INH Q4H PRN for SHORTNESS OF BREATH, (Reported) Benzonatate (Benzonatate) 100 Mg Capsule, 100 MG PO TIDP PRN for COUGH Hydroxyzine Pamoate (Hydroxyzine Pamoate) 25 Mg Capsule, 25 MG PO BID PRN for ANXIETY, (Reported) Ibuprofen (Ibuprofen) 200 Mg Tablet, 400 MG PO Q6H PRN for PAIN, (Reported) Allergies Coded Allergies: No Known Allergies (Unverified , 02/03/19) JOSE GUPTA MD Feb 06, 2019 07:45
[2019-02-06 14:22] LABS: BODY FLUID CULTURE Not Indicated (.); LEGIONELLA ANTIGEN URINE Negative (Negative); ORGANISM ID Not indicated. (.); SPECIMEN SOURCE Urine (.); URINE STREP PNEUMONIAE ANTIGEN Negative (Negative)
== END 2019-02-06 11:00 | disposition home or self-care (01) | DRG 139 ==
LOC: M ED 18:39 → M ED INP 18:40 → OBSVTOIN 02-04 14:12 → M MSPAV 02-04 14:28 → M PED 02-05 20:00
PROVIDERS: ADMIT Internal Medicine; ATTEND Internal Medicine
DX: J18.9 Pneumonia, unspecified organism (principal); F32.9 Major depressive disorder, single episode, unspecified; E66.9 Obesity, unspecified; B34.8 Other viral infections of unspecified site; R91.8 Other nonspecific abnormal finding of lung field; Z79.899 Other long term (current) drug therapy; E06.3 Autoimmune thyroiditis

== ENCOUNTER → 2019-03-30 | Outpatient (REF) | payer OTHER, MEDICAID ==
[~2019-03-30] MED LIST changes: +ACET1TAB55 PO; +AIRB1TAB PO; +AMOX875T2; +AUGM875T28 PO; +BENZ-18 PO; +HYDR1CAP25; +HYDR1CAP25 PO; +IBUP-1720 PO; +LEVO88TA3; +MEDR150I10 IM; +MOXI400T11 PO; +SYNT88TA2 PO; +VENL37.598; +VENL37.598 PO; +VENTAER INH; +VICKOIN5 TOP
[2019-04-01 14:07] LABS: HPV HYBRID CAPTURE II Negative (Negative)
== END ==
LOC: M LAB REF 17:18
PROVIDERS: ATTEND Advanced Practice Midwife
DX: Z12.4 Encounter for screening for malignant neoplasm of cervix (principal)

== ENCOUNTER → 2019-05-08 | Outpatient (CLI) | payer OTHER, MEDICAID ==
[2019-05-08 14:16] LABS: FREE T4 1.13 NG/DL (0.76-1.46); THYROID STIMULATING HORMONE 0.993 uIU/ML (0.358-3.740)
== END ==
LOC: M WUC 12:14
PROVIDERS: ATTEND Nurse Practitioner Family
DX: E03.9 Hypothyroidism, unspecified (principal)

== ENCOUNTER → 2019-06-09 | Outpatient (CLI) | payer OTHER ==
--- NOTE | 2019-06-10 05:47 | REP ---
Clinical: Follow up abnormal chest findings. Technique: Axial noncontrast images from the thoracic inlet to the upper abdomen with coronal and sagittal re-formations. Comparison: 02/03/2019. Findings: In comparison with prior examination there has been significant improvement to the bilateral reticulonodular infiltrates, and the current examination now only demonstrates "tree in bud" opacities involving the apical left lower lobe. The few nonspecific mediastinal lymph nodes are again suggested and essentially unchanged. Small amount of thymic tissue is suggested. No effusion. No pneumothorax. Tracheobronchial tree is patent. Mediastinum demonstrates normal thoracic aorta, pulmonary vasculature and heart/pericardium. Surrounding musculoskeletal structures are intact. Impression: 1. Findings are significantly improved as compared to prior examination. 2. Small area of opacity involving the apical left lower lobe may represent residual or new area of acute infectious/inflammatory change. Correlation with auscultation and physical examination is recommended. Electronically Signed by Andrae Gomez MD 06/10/2019 05:38 A
== END ==
LOC: M RAD 10:04
PROVIDERS: ATTEND Nurse Practitioner Family
DX: R91.8 Other nonspecific abnormal finding of lung field (principal)

== ENCOUNTER → 2019-12-16 | Outpatient (REF) | payer BC ==
[2020-01-14 22:45] LABS: BASO # 0.1 10^3/uL (0.0-0.2); BASO % 0.7 % (0.0-1.0); EOS # 0.2 10^3/uL (0.0-0.5); EOS % 2.8 % (0.0-3.0); HEMATOCRIT 44.3 % (36.0-47.0); HEMOGLOBIN 14.9 g/dl (12.0-15.5); LYMPH # 2.1 10^3/uL (1.5-5.0); LYMPH % 23.7 % (24.0-44.0); MEAN CORPUSCULAR HEMOGLOBIN 31.4 pg (27.0-33.0); MEAN CORPUSCULAR HGB CONC 33.6 g/dl (32.0-36.5); MEAN CORPUSCULAR VOLUME 93.3 fl (80.0-96.0); MONO # 0.5 10^3/uL (0.0-0.8); MONO % 5.5 % (0.0-5.0); NEUTROPHILS # 5.8 10^3/uL (1.5-8.5); NEUTROPHILS % 67.1 % (36.0-66.0); PLATELET COUNT, AUTOMATED 364 10^3/uL (150-450); RED BLOOD COUNT 4.75 10^6/uL (4.00-5.40); WHITE BLOOD COUNT 8.7 10^3/uL (4.0-10.0)
[2020-01-14 23:01] LABS: INR 0.96; PROTHROMBIN TIME 12.9 SECONDS (11.8-14.0)
[2020-01-14 23:02] LABS: PARTIAL THROMBOPLASTIN TIME 27.7 SECONDS (25.0-38.4)
[2020-01-30 17:38] LABS: ALBUMIN 4.3 GM/DL (3.2-5.2); ALT/SGPT 21 U/L (12-78); BILIRUBIN,TOTAL 0.6 MG/DL (0.2-1.0); BLOOD UREA NITROGEN 15 MG/DL (7-18); CARBON DIOXIDE LEVEL 29 MEQ/L (21-32); CHLORIDE LEVEL 108 MEQ/L (98-107); GLOMERULAR FILTRATION RATE > 60.0 (>60); GLUCOSE, FASTING 93 MG/DL (70-100); POTASSIUM SERUM 4.5 MEQ/L (3.5-5.1); SODIUM LEVEL 141 MEQ/L (136-145); TOTAL PROTEIN 7.8 GM/DL (6.4-8.2)
== END ==
LOC: M WUC 09:37
PROVIDERS: ATTEND Physician Assistant
DX: R23.3 Spontaneous ecchymoses (principal)

== ENCOUNTER → 2020-04-22 | Outpatient (CLI) | payer BC ==
[2020-04-22 14:44] LABS: FREE T4 1.16 NG/DL (0.76-1.46); THYROID STIMULATING HORMONE 1.04 uIU/ML (0.358-3.740)
[2020-04-22 14:45] LABS: TOTAL 25(OH) VITAMIN D 24.1 NG/ML (30.0-100.0)
== END ==
LOC: M WUC 11:59
PROVIDERS: ATTEND Nurse Practitioner Family
DX: E03.9 Hypothyroidism, unspecified (principal); R53.82 Chronic fatigue, unspecified

== ENCOUNTER → 2021-04-21 | Outpatient (REF) | payer BC ==
[~2021-04-21] MED LIST changes: -AIRB1TAB PO; +BACT800T5 PO; +FLOM0.4C39 PO; +KETO10TAB PO; +MV-M1TAB29 PO; +ZOFR4TAB16 PO
[2021-04-21 15:48] LABS: BASO # 0.1 10^3/uL (0.0-0.2); BASO % 0.6 % (0.0-1.0); EOS # 0.2 10^3/uL (0.0-0.5); EOS % 1.9 % (0.0-3.0); LYMPH # 2.4 10^3/uL (1.5-5.0); LYMPH % 25.2 % (24.0-44.0); MEAN CORPUSCULAR HEMOGLOBIN 31.3 pg (27.0-33.0); MEAN CORPUSCULAR HGB CONC 34.1 g/dl (32.0-36.5); MEAN CORPUSCULAR VOLUME 91.5 fl (80.0-96.0); MONO # 0.6 10^3/uL (0.0-0.8); NEUTROPHILS # 6.4 10^3/uL (1.5-8.5); PLATELET COUNT, AUTOMATED 340 10^3/uL (150-450); RED BLOOD COUNT 4.48 10^6/uL (4.00-5.40); WHITE BLOOD COUNT 9.7 10^3/uL (4.0-10.0)
[2021-04-21 16:27] LABS: ALBUMIN 3.9 GM/DL (3.2-5.2); ALT/SGPT 17 U/L (12-78); BLOOD UREA NITROGEN 14 MG/DL (7-18); CALCIUM LEVEL 9.5 MG/DL (8.5-10.1); CARBON DIOXIDE LEVEL 27 MEQ/L (21-32); CHLORIDE LEVEL 108 MEQ/L (98-107); CREATININE FOR GFR 0.61 MG/DL (0.55-1.30); FREE T4 1.13 NG/DL (0.76-1.46); GLOMERULAR FILTRATION RATE > 60.0 (>60); GLUCOSE, FASTING 91 MG/DL (70-100); POTASSIUM SERUM 4.4 MEQ/L (3.5-5.1); SODIUM LEVEL 141 MEQ/L (136-145); TOTAL PROTEIN 7.3 GM/DL (6.4-8.2)
== END ==
LOC: M SFHCCLAY 09:53
PROVIDERS: ATTEND Physician Assistant
DX: R09.81 Nasal congestion (principal); E03.9 Hypothyroidism, unspecified

== ENCOUNTER → 2021-04-21 | Outpatient (CLI) | payer BC | LOC: M CLY 10:09 | PROVIDERS: ATTEND Physician Assistant | DX: A68.9 Relapsing fever, unspecified (principal) ==

== ENCOUNTER 2021-05-09 13:10 | Emergency (ER) | payer BC ==
[~2021-05-09] VITALS: Ht 154.9 cm; Wt 72.7 kg
[~2021-05-09 13:10] MED LIST changes: -BACT800T5 PO; -FLOM0.4C39 PO; -KETO10TAB PO; -ZOFR4TAB16 PO
[2021-05-09 14:50] LABS: BASO % 0.4 % (0.0-1.0); EOS # 0.1 10^3/uL (0.0-0.5); EOS % 1.8 % (0.0-3.0); HEMATOCRIT 42.1 % (36.0-47.0); HEMOGLOBIN 14.3 g/dl (12.0-15.5); LYMPH # 1.7 10^3/uL (1.5-5.0); LYMPH % 22.1 % (24.0-44.0); MEAN CORPUSCULAR HEMOGLOBIN 30.9 pg (27.0-33.0); MEAN CORPUSCULAR VOLUME 90.9 fl (80.0-96.0); MONO # 0.6 10^3/uL (0.0-0.8); MONO % 7.4 % (2.0-8.0); NEUTROPHILS # 5.3 10^3/uL (1.5-8.5); PLATELET COUNT, AUTOMATED 303 10^3/uL (150-450); RED BLOOD COUNT 4.63 10^6/uL (4.00-5.40); WHITE BLOOD COUNT 7.8 10^3/uL (4.0-10.0)
[2021-05-09 15:26] LABS: ALBUMIN 3.8 GM/DL (3.2-5.2); ALT/SGPT 36 U/L (12-78); BILIRUBIN,DIRECT 0.2 MG/DL (0.0-0.2); BILIRUBIN,TOTAL 0.9 MG/DL (0.2-1.0); BLOOD UREA NITROGEN 10 MG/DL (7-18); CARBON DIOXIDE LEVEL 26 MEQ/L (21-32); CHLORIDE LEVEL 107 MEQ/L (98-107); CREATININE FOR GFR 0.76 MG/DL (0.55-1.30); GLOMERULAR FILTRATION RATE > 60.0 (>60); GLUCOSE, FASTING 103 MG/DL (70-100); LIPASE 68 U/L (73-393); SODIUM LEVEL 137 MEQ/L (136-145); TOTAL PROTEIN 7.2 GM/DL (6.4-8.2)
--- NOTE | 2021-05-09 15:26 | REP ---
INDICATION: left flank pain COMPARISON: None TECHNIQUE: Axial noncontrast images from the lung bases to the pubic symphysis with coronal and sagittal reformations. This CT examination was performed using the following dose reduction techniques: Automated exposure control, adjustment of mA and/or kv according to the patient's size, and use of iterative reconstruction technique. FINDINGS: Acute left-sided obstructive uropathy with hydronephrosis is secondary to a 5 mm calculus at the ureteropelvic junction (series 201; image 59). Remainder of the urinary tract system is normal. Liver, spleen, pancreas, gallbladder, and bilateral adrenal glands are normal. The enteric system is without obstruction or acute inflammatory process. Pelvis demonstrates normal bladder and age-appropriate uterus/adnexa. No ascites. No free air. No adenopathy. Abdominal aorta without aneurysm. Musculoskeletal structures are intact and without acute osseous abnormality. Lung bases are clear. IMPRESSION: Acute left-sided obstructive uropathy with a 5 mm calculus at the ureteropelvic junction. Remainder of the bilateral urinary tract system is normal. <Electronically signed by Andrae Gomez > 05/09/21 [id number]
[2021-05-09] MEDS ORDERED: ONDANSETRON 4MG/2ML VIAL IV ONE (15:30)
[2021-05-09] MEDS ORDERED: KETOROLAC 30 MG/ML 1ML VIAL IV ONE (15:30)
[2021-05-09] MEDS ORDERED: FLOM0.4C39 PO (17:13)
[2021-05-09] MEDS ORDERED: ZOFR4TAB16 PO (17:13)
[2021-05-09] MEDS ORDERED: BACT800T5 PO (17:13)
[2021-05-09] MEDS ORDERED: KETO10TAB PO (17:20)
[2021-05-09 17:42] VITALS: BP 133/80
== END 2021-05-09 17:47 | disposition home or self-care (01) ==
LOC: M ED 13:10
DX: N20.0 Calculus of kidney (principal); N13.30 Unspecified hydronephrosis; E03.9 Hypothyroidism, unspecified; F12.10 Cannabis abuse, uncomplicated; Z79.899 Other long term (current) drug therapy
CPT/HCPCS: 74176; 80053; 81001; 82248; 83690; 84702; 85025; 87086; 96374; 96375; 99284; J1885; J2405

== ENCOUNTER 2021-06-13 18:32 | Emergency (ER) | payer BC ==
[~2021-06-13] VITALS: Ht 154.9 cm; Wt 79.0 kg
[~2021-06-13 18:32] MED LIST changes: +BACT800T5 PO; +FLOM0.4C39 PO; +KETO10TAB PO; +ZOFR4TAB16 PO
[2021-06-13] MEDS ORDERED: ACETAMINOPHEN TAB 650MG DOSE (2X325MG) PO ONE (20:40)
[2021-06-13] MEDS ORDERED: NS 1,000 ML IV ONE (20:50)
[2021-06-13] MEDS ORDERED: NS 2,370 ML in IV 1 EA IV ONE (21:00)
[2021-06-13 21:10] LABS: BASO # 0.1 10^3/uL (0.0-0.2); BASO % 0.3 % (0.0-1.0); EOS # 0.1 10^3/uL (0.0-0.5); EOS % 0.5 % (0.0-3.0); HEMATOCRIT 38.9 % (36.0-47.0); HEMOGLOBIN 13.7 g/dl (12.0-15.5); LYMPH # 1.3 10^3/uL (1.5-5.0); LYMPH % 7.3 % (24.0-44.0); MEAN CORPUSCULAR HEMOGLOBIN 31.3 pg (27.0-33.0); MEAN CORPUSCULAR HGB CONC 35.2 g/dl (32.0-36.5); MEAN CORPUSCULAR VOLUME 88.8 fl (80.0-96.0); MONO # 0.6 10^3/uL (0.0-0.8); MONO % 3.4 % (2.0-8.0); NEUTROPHILS # 15.3 10^3/uL (1.5-8.5); NEUTROPHILS % 88.2 % (36.0-66.0); PLATELET COUNT, AUTOMATED 311 10^3/uL (150-450); RED BLOOD COUNT 4.38 10^6/uL (4.00-5.40); WHITE BLOOD COUNT 17.4 10^3/uL (4.0-10.0)
[2021-06-13] MEDS ORDERED: IBUPROFEN 800 MG TAB PO ONE (21:15)
[2021-06-13] MEDS ORDERED: PIPERACILLIN/TAZOBACTAM SOD 3.375 GM in D5W MINI-BAG PLUS 50 ML IV ONE (21:20)
[2021-06-13 21:33] LABS: ALT/SGPT 17 U/L (12-78); AMYLASE 39 U/L (25-115); BILIRUBIN,DIRECT 0.2 MG/DL (0.0-0.2); BILIRUBIN,TOTAL 0.8 MG/DL (0.2-1.0); BLOOD UREA NITROGEN 17 MG/DL (7-18); C REACTIVE PROTEIN QUANTITATIV 1.21 MG/DL (0.00-0.30); CALCIUM LEVEL 9.2 MG/DL (8.5-10.1); CARBON DIOXIDE LEVEL 23 MEQ/L (21-32); CHLORIDE LEVEL 108 MEQ/L (98-107); CREATININE FOR GFR 0.85 MG/DL (0.55-1.30); GLOMERULAR FILTRATION RATE > 60.0 (>60); GLUCOSE, FASTING 119 MG/DL (70-100); POTASSIUM SERUM 3.8 MEQ/L (3.5-5.1); SODIUM LEVEL 136 MEQ/L (136-145); TOTAL PROTEIN 7.4 GM/DL (6.4-8.2)
[2021-06-13 23:24] LABS: HCG, SERUM QUALITATIVE NEGATIVE (NEGATIVE)
[2021-06-14] MEDS ORDERED: ISOVUE-370 76% 100ML VIAL As Ordered ONE (01:35)
[2021-06-14] MEDS ORDERED: AUGM875T28 PO (03:18)
[2021-06-14 03:29] VITALS: BP 110/64
== END 2021-06-14 03:44 | disposition home or self-care (01) ==
LOC: M ED 18:32
DX: R65.11 Systemic inflammatory response syndrome (SIRS) of non-infectious origin with acute organ dysfunction (principal); R50.9 Fever, unspecified; R00.0 Tachycardia, unspecified; Z79.899 Other long term (current) drug therapy
CPT/HCPCS: 71045; 71260; 74177; 80048; 80076; 81001; 82150; 83605; 84703; 85025; 86140; 87040; 87798; 93005; 93041; 94760; 96374; 99285; J2543; Q9967